=== PATIENT | female | born 1965 ===

== ENCOUNTER 2018-12-05 08:24 | Outpatient (CLI) | payer OTHER ==
[~2018-12-05 08:24] MED LIST: OSEL75CA PO; TUSSI PRES-B L120 M1 PO
== END 2018-12-05 08:35 | disposition home or self-care (01) ==
LOC: MAMO-SONO 08:24
DX: R10.31 Right lower quadrant pain (principal); R10.32 Left lower quadrant pain; N60.11 Diffuse cystic mastopathy of right breast; N60.12 Diffuse cystic mastopathy of left breast; Z12.31 Encounter for screening mammogram for malignant neoplasm of breast

== ENCOUNTER 2024-07-31 06:33 | Outpatient (CLI) | payer OTHER ==
[2024-07-31 07:25] LABS: PH,URINE 7.5 (5.0-8.0); URINE APPEARANCE Clear; URINE BILIRRUBIN Negative (NEGATIVE); URINE BLOOD Small; URINE COLOR Yellow; URINE GLUCOSE Negative (NEGATIVE); URINE KETONE Negative (NEGATIVE); URINE LEUKOCYTE Negative; URINE NITRATE Negative; URINE PROTEIN Negative (NEGATIVE); URINE UROBILINOGEN 0.2 E.U./dl
[2024-07-31 07:26] LABS: URINE BACTERIA 12.5 uL (0.0-1933); URINE RBC 88.5 uL (0.0-20.8); URINE WBC 2.3 uL (0.0-23.2)
[2024-07-31 07:26] LABS: HEMATOCRIT 34.6 % (36.0-45.00); MEAN CELL VOLUME 84.8 fL (80.00-100.00); MEAN CORPUSCULAR HEMOGLOBIN 29.5 pg (27.00-32.0); MEAN CORPUSCULAR HGB CONC 34.8 g/dl (32.0-36.0); PLATELET COUNT 174 K/uL (150-450); RED BLOOD COUNT 4.08 M/uL (4.00-6.00); RED CELL DISTRIBUTION WIDTH 13.5 % (11.5-14.5)
[2024-07-31 08:01] LABS: ALBUMIN 3.7 gm/dL (3.4-5.0); BILIRUBIN TOTAL 0.6 mg/dL (0.3-1.2); CALCIUM 9.3 mg/dL (8.5-10.1); CHOL HDL RATIO 2.7 (0-5.0); CREATININE SERUM 0.86 mg/dL (0.55-1.02); GFR 68.01; GLOBULINA 3.6 G/DL (2.4-3.5); POTASSIUM 3.76 mEq/L (3.5-5.1); T4 TOTAL 10.26 UG/DL (4.8-13.9); TOTAL PROTEIN 7.3 gm/dL (6.4-8.2); TSH 1.28 uIU/mL (0.358-3.74)
== END 2024-07-31 06:34 | disposition home or self-care (01) ==
LOC: LAB 06:33
PROVIDERS: ATTEND General Practice
DX: D64.9 Anemia, unspecified (principal); R31.21 Asymptomatic microscopic hematuria; E78.00 Pure hypercholesterolemia, unspecified; E16.2 Hypoglycemia, unspecified; N18.2 Chronic kidney disease, stage 2 (mild)

== ENCOUNTER → 2025-02-09 06:21 | Outpatient (CLI) | payer OTHER ==
[2025-02-09 07:22] LABS: BASO % 0.9 % (0.1-1.2); EOS # 0.15 (0.04-0.54); EOS % 2.7 % (0.7-7.0); HEMATOCRIT 32.2 % (34.1-44.9); HEMOGLOBIN 11.3 g/dL (11.2-15.7); LYMPH # 1.79 (1.18-3.74); LYMPH % 31.6 % (19.3-53.1); MEAN CORPUSCULAR HEMOGLOBIN 28.9 pg (25.6-32.2); MONO # 0.46 (0.24-0.82); MONO % 8.1 % (4.7-12.5); NEUT % 56.5 % (34.0-71.1); PLATELET COUNT 194 K/uL (163-369); RED BLOOD COUNT 3.91 M/uL (3.93-5.22); RED CELL DISTRIBUTION WIDTH 13.2 % (11.6-14.4)
[2025-02-09 07:31] LABS: PH,URINE 6.5 (5.0-8.0); URINE APPEARANCE Clear; URINE BILIRRUBIN Negative (NEGATIVE); URINE BLOOD Small; URINE COLOR Yellow; URINE GLUCOSE Negative (NEGATIVE); URINE KETONE Negative (NEGATIVE); URINE LEUKOCYTE Negative; URINE NITRATE Negative; URINE PROTEIN Negative (NEGATIVE); URINE UROBILINOGEN 0.2 E.U./dl
[2025-02-09 07:36] LABS: URINE BACTERIA 7.3 uL (0.0-1933); URINE RBC 13.8 uL (0.0-20.8); URINE WBC 2.5 uL (0.0-23.2)
[2025-02-09 07:54] LABS: URINE EPITHELIAL CELLS 1.2 uL (0.0-38.8)
[2025-02-09 08:43] LABS: ALBUMIN 3.4 gm/dL (3.4-5.0); BILIRUBIN TOTAL 0.33 mg/dL (0.3-1.2); CALCIUM 8.8 mg/dL (8.5-10.1); CHOL HDL RATIO 3.2 (0-5.0); CREATININE SERUM 0.76 mg/dL (0.55-1.02); GFR 78.16; GLOBULINA 3.2 G/DL (2.4-3.5); POTASSIUM 3.83 mEq/L (3.5-5.1); TOTAL PROTEIN 6.6 gm/dL (6.4-8.2)
== END | disposition home or self-care (01) ==
LOC: LAB 06:21
DX: N18.9 Chronic kidney disease, unspecified (principal); I12.9 Hypertensive chronic kidney disease with stage 1 through stage 4 chronic kidney disease, or unspecified chronic kidney disease; E11.22 Type 2 diabetes mellitus with diabetic chronic kidney disease; R80.9 Proteinuria, unspecified; E55.9 Vitamin D deficiency, unspecified; E78.2 Mixed hyperlipidemia; E79.0 Hyperuricemia without signs of inflammatory arthritis and tophaceous disease; D64.9 Anemia, unspecified

== ENCOUNTER 2025-02-10 07:07 | Outpatient (CLI) | payer OTHER | END 2025-02-10 08:24 | disposition home or self-care (01) | LOC: SONOGRAMA 07:07 | DX: K76.0 Fatty (change of) liver, not elsewhere classified (principal); N18.1 Chronic kidney disease, stage 1; M54.6 Pain in thoracic spine ==

== ENCOUNTER 2025-08-30 08:01 | Outpatient (CLI) | payer OTHER ==
[2025-08-30 09:20] LABS: BASO % 0.6 % (0.1-1.2); EOS # 0.04 (0.04-0.54); EOS % 0.6 % (0.7-7.0); LYMPH # 1.42 (1.18-3.74); LYMPH % 20.0 % (19.3-53.1); MEAN PLATELET VOLUME 11.90 fl (9.4-12.4); MONO # 0.50 (0.24-0.82); MONO % 7.1 % (4.7-12.5); NEUT # 5.07 (1.56-6.13); NEUT % 71.4 % (34.0-71.1); RED CELL DISTRIBUTION WIDTH 13.4 % (11.6-14.4)
[2025-08-30 09:50] LABS: URINE APPEARANCE Clear; URINE BILIRRUBIN Negative (NEGATIVE); URINE BLOOD Negative; URINE COLOR Yellow; URINE GLUCOSE Negative (NEGATIVE); URINE KETONE Negative (NEGATIVE); URINE LEUKOCYTE Trace; URINE NITRATE Negative; URINE PROTEIN Negative (NEGATIVE); URINE UROBILINOGEN 0.2 E.U./dl
[2025-08-30 09:51] LABS: URINE BACTERIA 32.3 uL (0.0-1933); URINE RBC 2.9 uL (0.0-20.8); URINE WBC 4.4 uL (0.0-23.2)
[2025-08-30 10:00] LABS: URINE CAST 0.00 uL (0.0-1.40); URINE EPITHELIAL CELLS 0.7 uL (0.0-38.8)
[2025-08-30 10:24] LABS: ALT/SGPT 20.0 U/L (12-78); AST/SGOT 14.0 U/L (15-37); BILIRUBIN TOTAL 0.58 mg/dL (0.3-1.2); BUN CREA RATIO 17.0 (7.0-25.0); CHOL HDL RATIO 3.0 (0-5.0); CREATININE SERUM 0.77 mg/dL (0.55-1.02); GFR 76.73; GLOBULINA 3.4 G/DL (2.4-3.5); GLUCOSE FASTING 88.0 mg/dL (65-100); HDL 57.0 mg/dl (40-60); LDL 94.0 mg/dl (0-130); OSMOLALITY SERUM 285.0 MOSM/KG (275-295); T4 TOTAL 7.88 UG/DL (4.8-13.9); TSH 0.991 uIU/mL (0.358-3.74); VLDL 19.0 (0-39)
== END 2025-08-30 08:07 | disposition home or self-care (01) ==
LOC: LAB 08:01
DX: D64.9 Anemia, unspecified (principal); R31.21 Asymptomatic microscopic hematuria; E78.00 Pure hypercholesterolemia, unspecified; E04.0 Nontoxic diffuse goiter; E16.2 Hypoglycemia, unspecified; N18.2 Chronic kidney disease, stage 2 (mild)